=== PATIENT | male | born 1945 | race Caucasian/White ===

== ENCOUNTER 2018-12-14 12:53 | Emergency (ER) | payer MEDICARE ==
--- NOTE | 2018-12-14 13:23 | ED Physician Documentation ---
History of Present Illness - Stated complaint Stated Complaint: COUGH, SOA - Chief complaint Chief Complaint: General - History obtained from History obtained from: Patient - Additonal information Additional information: 73-year-old gentleman with hypertension and arthritis presents with shortness of breath it has been going on for about 2 weeks with a mild cough productive of clear sputum. The shortness of breath is worse with exertion and upright posture and better when supine. He does note bilateral pedal edema, left worse than right with some calf pain on the left. He is been traveling a lot lately with multiple trips to and from [place] both by ground and air. No history of DVT or PE or cardiac issues. Review of Systems Ten Systems: 10 systems reviewed and negative Constitutional: denies: Fever, Chills Nose: denies: Rhinorrhea / runny nose, Congestion Cardiac: reports: Pedal edema, Calf pain. denies: Chest pain / pressure, Palpitations Respiratory: reports: Dyspnea, Cough. denies: Hemoptysis, Wheezing GI: denies: Abdominal Pain Musculoskeletal: denies: Neck pain, Back pain PD PAST MEDICAL HISTORY - Past Medical History Past Medical History: Yes Cardiovascular: Hypertension - Past Surgical History Past Surgical History: Yes Ortho: Other (R ankle) - Present Medications Home Medications: Ambulatory Orders Medication Instructions Recorded Confirmed Azithromycin [Zithromax] 1 tab PO DAILY #6 tablet 12/14/18 - Allergies Allergies/Adverse Reactions: Allergies Allergy/AdvReac Type Severity Reaction Status Date / Time No Known Drug Allergies Allergy Verified 12/14/18 12:58 - Living Situation Living Situation: reports: With spouse/s.o. - Social History Does the pt smoke?: No Smoking Status: Former smoker (quit 40 yrs ago) Does the pt drink ETOH?: No Does the pt have substance abuse?: No - Family History Family history: reports: Non contributory PD ED PE NORMAL - Vitals Vital signs reviewed: Yes - General General: Alert and oriented X 3, No acute distress - HEENT HEENT: PERRL, EOMI - Neck Neck: Supple, no meningeal sign, No bony TTP - Cardiac Cardiac: No murmur, Other (Frequent extrasystoles) - Respiratory Respiratory: No respiratory distress, Clear bilaterally - Abdomen Abdomen: Non tender - Back Back: No CVA TTP, No spinal TTP - Derm Derm: Normal color, Warm and dry - Extremities Extremities: Other (Mild R and Mod L calf edema, Mild L calf TTP) - Neuro Neuro: Alert and oriented X 3, Normal speech - Psych Psych: Normal mood, Normal affect Results - Vitals Vitals: Vital Signs - 24 hr 12/14/18 12/14/18 12:56 14:58 Temperature 36.0 C L Heart Rate 94 77 Respiratory 22 16 Rate Blood Pressure 145/94 H 151/76 H O2 Saturation 94 96 Oxygen O2 Source Room air - EKG (time done) 1313 Rate: Rate (enter#) (89) Rhythm: NSR (With a lot of sinus variability) [place]: Normal Intervals: Normal [place] QRS: Normal Ischemia: Normal ST segments Compare to prior EKG: Old EKG unavailable Computer interpretation: Agree with computer - Labs Labs: Laboratory Tests 12/14/18 12/14/18 12/14/18 13:38 13:38 13:38 WBC 11.3 H RBC 5.42 Hgb 16.1 Hct 47.1 MCV 86.9 MCH 29.7 MCHC 34.2 RDW 13.4 Plt Count 236 MPV 10.0 Neut # (Auto) 8.3 H Lymph # (Auto) 2.0 Reagan # (Auto) 0.6 Eos # (Auto) 0.2 Baso # (Auto) 0.1 Absolute Nucleated RBC 0.00 Nucleated RBC % 0.0 Sodium 147 H Potassium 3.5 Chloride 103 Carbon Dioxide 25 Anion Gap 19.0 H BUN 14 Creatinine 0.8 Estimated GFR (MDRD) 94 Glucose 118 H Calcium 9.2 Total Bilirubin 0.4 AST 18 ALT 20 Alkaline Phosphatase 53 Troponin I High Sens 3.9 B-Natriuretic Peptide Total Protein 6.0 L Albumin 4.0 Globulin 2.0 L Albumin/Globulin Ratio 2.0 Lipase 32 12/14/18 13:38 WBC RBC Hgb Hct MCV MCH MCHC RDW Plt Count MPV Neut # (Auto) Lymph # (Auto) Reagan # (Auto) Eos # (Auto) Baso # (Auto) Absolute Nucleated RBC Nucleated RBC % Sodium Potassium Chloride Carbon Dioxide Anion Gap BUN Creatinine Estimated GFR (MDRD) Glucose Calcium Total Bilirubin AST ALT Alkaline Phosphatase Troponin I High Sens B-Natriuretic Peptide 32 Total Protein Albumin Globulin Albumin/Globulin Ratio Lipase - Rads (name of study) CT Chest for PE Radiology: EMP read contemporaneously (No PE, 4.4 cm a sending thoracic aorta dilatation, prominent paratracheal lymph node, atelectasis) PD MEDICAL DECISION MAKING - ED course ED course: 73-year-old gentleman presents with shortness of breath and a cough. Given recent travel suspicion for PE was significant and a CT was done without evidence of same. Incidental findings needing follow-up were discussed with the patient and his and he was given a copy of the CAT scan read as well as his labs. Remainder for his work-up was not suggestive of ACS, CHF, or pneumonia. He does have evidence of bronchitis with a productive cough and mildly elevated white blood cell count. Departure - Departure Disposition: 01 Home, Self Care Clinical Impression: Bronchitis, Ascending aortic aneurysm Condition: Good Record reviewed to determine appropriate education?: Yes Instructions: ED Bronchitis Asthmatic Prescriptions: Azithromycin [Zithromax] 1 tab PO DAILY #6 tablet Comments: Return for new or worsening symptoms. Follow-up with your doctor on return home, take the copy of the CAT scan with you. He or she may want to follow-up on the ascending aortic aneurysm and lymph node in your chest. These do not need urgent follow-up.
[2018-12-14] MEDS ORDERED: IOVERSOL 320 100 ML VIAL IVP ONE ×2 (13:36→15:02)
[2018-12-14 13:51] LABS: BASOPHILS # (AUTO) 0.1 10^3/uL (0.0-0.1); BASOPHILS % (AUTO) 0.5 %; EOSINOPHILS # (AUTO) 0.2 10^3/uL (0.0-0.7); EOSINOPHILS % (AUTO) 1.8 %; HGB - HEMOGLOBIN 16.1 g/dL (14.0-18.0); LYMPHOCYTES % (AUTO) 18.1 %; MEAN CORPUSCULAR HEMOGLOBIN 29.7 pg (27.0-31.0); MEAN CORPUSCULAR HGB CONC 34.2 g/dL (32.0-36.0); MEAN CORPUSCULAR VOLUME 86.9 fL (80.0-94.0); MONOCYTES # (AUTO) 0.6 10^3/uL (0.0-1.0); MONOCYTES % (AUTO) 5.5 %; NEUTROPHILS # (AUTO) 8.3 10^3/uL (1.5-6.6); NEUTROPHILS % (AUTO) 73.6 %; PLT - PLATELET COUNT 236 10^3/uL (130-450); RED BLOOD COUNT 5.42 10^6/uL (4.70-6.10); RED CELL DISTRIBUTION WIDTH 13.4 % (12.0-15.0); WHITE BLOOD COUNT 11.3 x10^3/uL (4.8-10.8)
[2018-12-14 14:32] LABS: BILIRUBIN,TOTAL 0.4 mg/dL (0.2-1.0); CALCIUM 9.2 mg/dL (8.5-10.3); CREATININE 0.8 mg/dL (0.6-1.2)
--- NOTE | 2018-12-14 15:43 | CT Report ---
Reason: PE protocol for dyspnea Procedure Date: 12/14/2018 Accession Number: [id number] / [id number] Procedure: CT - ANGIO CHEST W/WO CPT Code: FULL RESULT: EXAM: CT ANGIOGRAM CHEST EXAM DATE: 12/14/2018 02:58 PM. CLINICAL HISTORY: Pulmonary emboli protocol for dyspnea. COMPARISON: None. TECHNIQUE: Routine helical imaging was performed through the chest in the pulmonary arterial phase. IV Contrast: OPTI 320; 80 mL. Reconstructions: Coronal 3-D MIP reconstructions.Sagittal and coronal. In accordance with CT protocol optimization, one or more of the following dose reduction techniques were utilized for this exam: automated exposure control, adjustment of mA and/or KV based on patient size, or use of iterative reconstructive technique. FINDINGS: Upper abdomen: Mild to moderate elevation of right hemidiaphragm. No acute findings seen in the upper abdomen. Small calcification seen in the right hepatic lobe. A few small calcifications in the spleen, suspect old granulomatous disease. Mediastinum: Aortic valve calcification. Aneurysmal dilatation of the ascending thoracic aorta measuring 4.4 cm. Prominent heart size. Prominent paratracheal lymph node measuring 9 mm. No mediastinal or hilar lymphadenopathy. No evidence for pulmonary emboli. Lungs: No pleural effusion or pneumothorax. Mild motion artifact limited. Suspect bilateral atelectasis, but mild interstitial pulmonary edema diffusely bilaterally is not excluded. No consolidation. No acute bone findings. IMPRESSION: 1. No evidence for pulmonary emboli. 2. Aneurysmal dilatation of the ascending thoracic aorta measuring 4.4 cm. Aortic valve calcifications. 3. Prominent paratracheal lymph node measuring 9 mm. 4.No pleural effusion or pneumothorax. Mild motion artifact limited. Suspect bilateral atelectasis, but mild interstitial pulmonary edema diffusely bilaterally is not excluded. No consolidation. RADIA
[2018-12-14 16:11] VITALS: BP 143/77
== END 2018-12-14 16:10 | disposition home or self-care (01) ==
LOC: ED 12:53
DX: J40 Bronchitis, not specified as acute or chronic (principal); I71.2 Thoracic aortic aneurysm, without rupture; I10 Essential (primary) hypertension; Z87.891 Personal history of nicotine dependence
CPT/HCPCS: 36415; 71275; 80053; 83690; 83880; 84484; 85025; 93005; 99284; Q9967